=== PATIENT | female | born 1985 | race Caucasian/White ===

== ENCOUNTER 2019-06-12 08:00 | Day surgery (SDC) | payer MEDICARE, OTHER ==
[2019-06-12] MEDS ORDERED: LIDOCAINE 100 MG SYRINGE (08:58)
[2019-06-12] MEDS ORDERED: PROPOFOL 40 ML (08:58)
[2019-06-12] MEDS ORDERED: FENTAnyl 50 MCG/ML VIAL (08:58)
== END 2019-06-12 13:51 | disposition home or self-care (01) ==
LOC: GIL 08:00
DX: R19.7 Diarrhea, unspecified (principal); K64.8 Other hemorrhoids; K44.9 Diaphragmatic hernia without obstruction or gangrene; K21.0 Gastro-esophageal reflux disease with esophagitis; K29.50 Unspecified chronic gastritis without bleeding
CPT/HCPCS: 43239; 88305; 88312